=== PATIENT | female | born 1980 | race African-American/Black ===

== ENCOUNTER 2021-05-12 19:10 | Emergency (ER) | payer MEDICARE, MEDICAID ==
[2021-05-12 21:57] LABS: SARS-CoV-2 NAA Rapid Test Not Detected (NotDetected)
== END 2021-05-12 20:38 | disposition home or self-care (01) ==
LOC: ERS 19:10
DX: R50.9 Fever, unspecified (principal); Z20.822 Contact with and (suspected) exposure to COVID-19; Z79.899 Other long term (current) drug therapy; I50.9 Heart failure, unspecified; F17.210 Nicotine dependence, cigarettes, uncomplicated
CPT/HCPCS: 99283; U0002; U0005

== ENCOUNTER 2021-07-24 03:19 | Emergency (ER) | payer MEDICARE, MEDICAID ==
[2021-07-24] MEDS ORDERED: Lidocaine 1% w/Epinephrine 1:100K 20 ML VIAL ONE (04:02)
[2021-07-24] MEDS ORDERED: Boostrix 0.5 ML (Tdap) VIAL ONE (04:08)
== END 2021-07-24 04:26 | disposition home or self-care (01) ==
LOC: ERS 03:19
DX: S51.812A Laceration without foreign body of left forearm, initial encounter (principal); M32.9 Systemic lupus erythematosus, unspecified; R06.9 Unspecified abnormalities of breathing; K31.84 Gastroparesis; I50.9 Heart failure, unspecified; F17.210 Nicotine dependence, cigarettes, uncomplicated; Z23 Encounter for immunization; W25.XXXA Contact with sharp glass, initial encounter; Z79.899 Other long term (current) drug therapy
CPT/HCPCS: 12001; 90471; 90715

== ENCOUNTER 2023-12-16 10:08 | Emergency (ER) | payer MEDICAID, OTHER ==
[2023-12-16] MEDS ORDERED: Cyclobenzaprine 10 MG TAB ONE (10:54)
[2023-12-16] MEDS ORDERED: HYDROcodone/Acetaminophen 10/325 mg Tablet ONE (10:54)
== END 2023-12-16 12:29 | disposition home or self-care (01) ==
LOC: ERS 10:08
DX: M77.11 Lateral epicondylitis, right elbow (principal); F17.210 Nicotine dependence, cigarettes, uncomplicated

== ENCOUNTER 2024-03-21 01:31 | Emergency (ER) | payer OTHER | END 2024-03-21 04:10 | disposition home or self-care (01) | LOC: ERS 01:31 | DX: S93.601A Unspecified sprain of right foot, initial encounter (principal); S93.401A Sprain of unspecified ligament of right ankle, initial encounter; F17.210 Nicotine dependence, cigarettes, uncomplicated; W01.190A Fall on same level from slipping, tripping and stumbling with subsequent striking against furniture, initial encounter ==